=== PATIENT | male | born 1960 | race Caucasian/White ===

== ENCOUNTER 2021-12-14 08:30 | Outpatient (CLI) | payer OTHER | END 2021-12-14 08:31 | disposition home or self-care (01) | LOC: CSHWCC 08:30 | PROVIDERS: ATTEND Preventive Medicine Undersea and Hyperbaric Medicine | DX: I83.12 Varicose veins of left lower extremity with inflammation (principal); R60.0 Localized edema | CPT/HCPCS: 29581; 36416; 99203; G0463 ==

== ENCOUNTER 2021-12-21 08:22 | Outpatient (CLI) | payer SELFPAY | END 2021-12-21 08:23 | disposition home or self-care (01) | LOC: CSHWCC 08:22 | PROVIDERS: ATTEND Preventive Medicine Undersea and Hyperbaric Medicine | DX: I83.12 Varicose veins of left lower extremity with inflammation (principal); R60.0 Localized edema ==

== ENCOUNTER 2021-12-28 08:19 | Outpatient (CLI) | payer OTHER | END 2021-12-28 08:20 | disposition home or self-care (01) | LOC: CSHWCC 08:19 | PROVIDERS: ATTEND Nurse Practitioner Family | DX: I83.11 Varicose veins of right lower extremity with inflammation (principal); I83.12 Varicose veins of left lower extremity with inflammation; R60.0 Localized edema | CPT/HCPCS: 29581 ==

== ENCOUNTER 2022-01-12 08:33 | Outpatient (CLI) | payer SELFPAY | END 2022-01-12 08:34 | disposition home or self-care (01) | LOC: CSHWCC 08:33 | PROVIDERS: ATTEND Nurse Practitioner Family | DX: I87.2 Venous insufficiency (chronic) (peripheral) (principal); R60.0 Localized edema | CPT/HCPCS: 29581; 87070; 87205 ==

== ENCOUNTER 2022-01-16 08:08 | Outpatient (CLI) | payer SELFPAY | END 2022-01-16 08:09 | disposition home or self-care (01) | LOC: CSHWCC 08:08 | PROVIDERS: ATTEND Nurse Practitioner Family | DX: I83.12 Varicose veins of left lower extremity with inflammation (principal) | CPT/HCPCS: 29581 ==

== ENCOUNTER 2022-02-06 08:32 | Outpatient (CLI) | payer SELFPAY | END 2022-02-06 08:33 | disposition home or self-care (01) | LOC: CSHWCC 08:32 | PROVIDERS: ATTEND Nurse Practitioner Family | DX: R60.0 Localized edema (principal) | CPT/HCPCS: 29581 ==

== ENCOUNTER 2022-03-01 08:36 | Outpatient (CLI) | payer SELFPAY | END 2022-03-01 08:37 | disposition home or self-care (01) | LOC: CSHWCC 08:36 | PROVIDERS: ATTEND Nurse Practitioner Family | DX: I83.11 Varicose veins of right lower extremity with inflammation (principal); I83.12 Varicose veins of left lower extremity with inflammation; R60.0 Localized edema ==

== ENCOUNTER 2022-03-29 09:17 | Outpatient (CLI) | payer SELFPAY | END 2022-03-29 09:18 | disposition home or self-care (01) | LOC: CSHWCC 09:17 | PROVIDERS: ATTEND Nurse Practitioner Family | DX: I83.11 Varicose veins of right lower extremity with inflammation (principal); I83.12 Varicose veins of left lower extremity with inflammation; R60.0 Localized edema | CPT/HCPCS: 29581 ==